=== PATIENT | female | born 1990 | race Caucasian/White ===

== ENCOUNTER → 2016-07-05 | Outpatient (CLI) | payer OTHER ==
[~2016-07-05] MED LIST: BENZ1GEL24 TD; CETI10TA84 PO; FLUT50SP14 NAE
[2016-07-05 17:51] LABS: CALCIUM 8.9 mg/dl (8.5-10.1)
[2016-07-05 18:05] LABS: THYROID STIMULATING HORMONE 0.349 uIu/ml (0.300-4.500)
[2016-07-07 15:29] LABS: THYROGLOBULIN 0.2 NG/ML (2.8-40.9)
== END | disposition home or self-care (01) ==
LOC: C.LAB1850 16:37
PROVIDERS: ATTEND Internal Medicine Endocrinology, Diabetes & Metabolism
DX: C73 Malignant neoplasm of thyroid gland (principal); R25.2 Cramp and spasm